=== PATIENT | female | born 1955 | race Caucasian/White ===

== ENCOUNTER 2019-01-11 00:16 | Emergency (ER) | payer OTHER ==
[~2019-01-11] VITALS: Ht 170.2 cm; Wt 74.0 kg
--- NOTE | 2019-01-11 00:22 | NUR ---
PT [facility]. WITNESSED SYNCOPAL EPISODE, HIT HEAD, + NAUSEA. EKG DONE ON ARRIVAL. PT DENIES DIZZINESS, HAS SOME DIFFICULTY ANSWERING QUESTIONS, STATES "I JUST DON'T FEEL WELL." PROVIDER AT BEDSIDE.
[2019-01-11] MEDS ORDERED: ONDANSETRON 2MG/ML, 2ML IVPush ONE (00:30)
[2019-01-11] MEDS ORDERED: FLUO10CA13 PO (00:31)
[2019-01-11] MEDS ORDERED: ATEN25TA PO (00:32)
[2019-01-11] MEDS ORDERED: LEVO25TA4 PO (00:32)
[2019-01-11] MEDS ORDERED: ONDANSETRON 2MG/ML, 2ML ONE (00:36)
--- NOTE | 2019-01-11 00:43 | NUR ---
PT MEDICATED PER MAR
[2019-01-11 00:57] LABS: MEAN CORPUSCULAR HEMOGLOBIN 32.9 pg (27.0-34.8); MEAN CORPUSCULAR HGB CONC 33.8 g/dL (32.4-35.8); MEAN CORPUSCULAR VOLUME 97.3 fL (80-100); PLATELET COUNT 274 x10^3/uL (130-400); RED BLOOD COUNT 4.19 x10^6/uL (3.82-5.3); RED CELL DISTRIBUTION WIDTH 12.7 % (9.6-15.2)
[2019-01-11 00:58] LABS: ANION GAP 7 mmol/L (5-15); CALCIUM 9.2 mg/dL (8.5-10.1); CHLORIDE 106 mmol/L (98-107); CREATININE 0.68 mg/dL (0.55-1.02)
--- NOTE | 2019-01-11 01:00 | NUR ---
PT TO CT
[2019-01-11 01:02] LABS: TROPONIN I < 0.015 ng/mL (0.000-0.045)
[2019-01-11 01:09] LABS: BASOPHILS # (AUTO) 0.04 x10^3/uL (0-0.1); BASOPHILS % (AUTO) 1 % (0-1); EOSINOPHILS # (AUTO) 0.25 x10^3/uL (0-0.4); EOSINOPHILS % (AUTO) 3 % (1-7); LYMPHOCYTES # (AUTO) 3.13 x10^3/uL (1-3.4); LYMPHOCYTES % (AUTO) 42 % (22-44); MD SCAN; MONOCYTES # (AUTO) 0.64 x10^3/uL (0.2-0.8); MONOCYTES % (AUTO) 9 % (2-9); NEUTROPHILS # (AUTO) 3.43 x10^3/uL (1.8-6.8); NEUTROPHILS % (AUTO) 46 % (42-75)
--- NOTE | 2019-01-11 01:32 | NUR ---
PT RESTING CALMLY, DENIES NEEDS, MONITORS IN PLACE, CALL LIGHT WITHIN REACH. AWAITING CT RESULT
[2019-01-11] MEDS ORDERED: PROMETHAZINE 25 MG/ML, 1ML IM ONE (02:00)
[2019-01-11] MEDS ORDERED: PROMETHAZINE 25 MG/ML, 1ML ONE (02:11)
[2019-01-11] MEDS ORDERED: IBUPROFEN 800 MG TABLET PO ONE (02:30)
[2019-01-11] MEDS ORDERED: IBUPROFEN 800 MG TABLET ONE (02:33)
[2019-01-11 02:34] VITALS: BP 152/88
--- NOTE | 2019-01-11 02:37 | NUR ---
PT MEDICATE DPER MAR. MONITORS IN PLACE, CALL LIGHT WITHIN REACH, DENIES FURTHER NEEDS AT THSI TIME
[2019-01-11] MEDS ORDERED: [UNRECOGNIZED DRUG - OTHER] PO (13:52)
[2019-01-11] MEDS ORDERED: BENA20TA5 PO (21:17)
[2019-01-11] MEDS ORDERED: ACEB400C PO (21:57)
[2019-01-11] MEDS ORDERED: FLUO20CA8 PO (22:36)
[2019-01-12] MEDS ORDERED: LEVO125T5 PO (09:30)
== END 2019-01-11 03:08 | disposition home or self-care (01) ==
LOC: ED 03:00
DX: S00.03XA Contusion of scalp, initial encounter (principal); R11.0 Nausea; R55 Syncope and collapse; I10 Essential (primary) hypertension; E03.9 Hypothyroidism, unspecified; R51 Headache; X58.XXXA Exposure to other specified factors, initial encounter; Y93.89 Activity, other specified; Y92.89 Other specified places as the place of occurrence of the external cause; Y99.8 Other external cause status
CPT/HCPCS: 36415; 70450; 80048; 84484; 85025; 93005; 96372; 96374; 99284; J2405; J2550

== ENCOUNTER 2019-01-11 13:45 | Inpatient (IN) | payer OTHER ==
[~2019-01-11] VITALS: Ht 175.3 cm; Wt 68.9 kg
[~2019-01-11 13:45] MED LIST: ATEN25TA PO; FLUO10CA13 PO; LEVO25TA4 PO
[2019-01-11] MEDS ORDERED: [UNRECOGNIZED DRUG - OTHER] PO (13:52)
--- NOTE | 2019-01-11 13:54 | NUR ---
PT ARRIVED [facility] FOR DIZZINESS. PT STATES SHE FELL YESTERDAY AFTER A SYNCOPAL EPISODE AND CAME TO THE ER, HEAD CT WAS NEGATIVE. PT WAS DISCHARGED HOME YESTERDAY EVENING BUT STATES HER COMPANY WANTS HER TO BE OBSERVED FOR 24 HOURS. PT STATES SHE HAS NO ONE TO WATCH HER AND IS STILL DIZZY AND NAUSEOUS. PT AAO X 4, DRESSED IN GOWN AND RESTING COMFORTABLY ON GURNEY. CALL LIGHT WITHIN REACH, NAD, VSS.
[2019-01-11] MEDS ORDERED: MECLIZINE CHEWABLE 25 MG TAB PO ONE (14:00)
[2019-01-11] MEDS ORDERED: MECLIZINE CHEWABLE 25 MG TAB ONE (14:16)
--- NOTE | 2019-01-11 14:18 | NUR ---
PT MEDICATED PER MD ORDER.
--- NOTE | 2019-01-11 15:01 | NUR ---
this rn spoke with pt's family via phone, updates provided.
--- NOTE | 2019-01-11 15:18 | NUR ---
md at bedside, plan to admit, friend at bedside.
--- NOTE | 2019-01-11 15:31 | NUR ---
report given to card/telephone lineworker.
--- NOTE | 2019-01-11 15:40 | NUR ---
pt became hypoxic when standing. pt placed on spo2.
[2019-01-11] MEDS ORDERED: BUTALB/APAP/CAFFEINE 50MG/325MG/40MG PO PRN (16:00)
[2019-01-11] MEDS ORDERED: ONDANSETRON 2MG/ML, 2ML IVPush PRN (16:00)
[2019-01-11] MEDS ORDERED: LABETALOL 5MG/ML, 20ML IVPush PRN (16:00)
[2019-01-11] MEDS: SODIUM CHLORIDE 0.9% 1,000 ML IV SCH (16:29)
[2019-01-11 16:44] LABS: TROPONIN I < 0.015 ng/mL (0.000-0.045)
[2019-01-11 16:50] LABS: THYROID STIMULATING HORMONE 0.929 mIU/L (0.358-3.740)
[2019-01-11 17:09] VITALS: BP 152/82
[2019-01-11 19:22] VITALS: BP 155/62
[2019-01-11] MEDS: MECLIZINE CHEWABLE 25 MG TAB PO SCH (20:04)
[2019-01-11] MEDS: ACETAMINOPHEN 325 MG TABLET PO PRN (20:04)
[2019-01-11] MEDS ORDERED: FLUOXETINE 10 MG CAP HOMEMEDPO SCH (21:00)
[2019-01-11] MEDS ORDERED: BENA20TA5 PO (21:17)
[2019-01-11] MEDS ORDERED: ACEB400C PO (21:57)
[2019-01-11] MEDS ORDERED: FLUOXETINE 10 MG CAP PO SCH ×2 (22:00→22:18)
[2019-01-11 22:15] LABS: TROPONIN I < 0.015 ng/mL (0.000-0.045)
[2019-01-11 22:19] LABS: ANION GAP 8 mmol/L (5-15); CALCIUM 8.5 mg/dL (8.5-10.1); CHLORIDE 110 mmol/L (98-107); CREATININE 0.77 mg/dL (0.55-1.02)
[2019-01-11] MEDS ORDERED: ACEBUTOLOL HOMEMEDPO SCH (22:30)
[2019-01-11] MEDS ORDERED: FLUO20CA8 PO (22:36)
[2019-01-12] VITALS (9 sets, daily range): BP systolic 106–158; BP diastolic 61–96
[2019-01-12 04:15] LABS: ALANINE AMINOTRANSFERASE 22 U/L (12-78); ALBUMIN 3.1 g/dL (3.4-5.0); ANION GAP 4 mmol/L (5-15); CALCIUM 8.7 mg/dL (8.5-10.1); CHLORIDE 111 mmol/L (98-107)
[2019-01-12 04:23] LABS: ALKALINE PHOSPHATASE 65 U/L (45-117); BILIRUBIN,TOTAL 0.8 mg/dL (0.2-1.0); CREATININE 0.58 mg/dL (0.55-1.02); TOTAL PROTEIN 6.6 g/dL (6.4-8.2); TROPONIN I < 0.015 ng/mL (0.000-0.045)
[2019-01-12] MEDS ORDERED: POTASSIUM CHLORIDE 20 MEQ TAB.ER.PRT PO ONE (04:30)
[2019-01-12 04:38] LABS: BASOPHILS # (AUTO) 0.03 x10^3/uL (0-0.1); BASOPHILS % (AUTO) 0 % (0-1); EOSINOPHILS # (AUTO) 0.33 x10^3/uL (0-0.4); EOSINOPHILS % (AUTO) 4 % (1-7); LYMPHOCYTES # (AUTO) 2.76 x10^3/uL (1-3.4); LYMPHOCYTES % (AUTO) 36 % (22-44); MD NO; MEAN CORPUSCULAR HGB CONC 33.6 g/dL (32.4-35.8); MEAN CORPUSCULAR VOLUME 98.2 fL (80-100); MEAN PLATELET VOLUME 7.2 fL (7.4-10.4); MONOCYTES # (AUTO) 0.69 x10^3/uL (0.2-0.8); MONOCYTES % (AUTO) 9 % (2-9); NEUTROPHILS # (AUTO) 3.91 x10^3/uL (1.8-6.8); NEUTROPHILS % (AUTO) 51 % (42-75); PLATELET COUNT 245 x10^3/uL (130-400); RED BLOOD COUNT 4.15 x10^6/uL (3.82-5.3)
[2019-01-12] MEDS: MECLIZINE CHEWABLE 25 MG TAB PO SCH ×2 (08:07→21:19)
[2019-01-12] MEDS ORDERED: LEVO125T5 PO (09:30)
[2019-01-12] MEDS ORDERED: BENAZEPRIL 10 MG TABLET PO SCH (10:00)
[2019-01-12] MEDS ORDERED: BENAZEPRIL 20 MG TABLET ONE (10:04)
[2019-01-12] MEDS: LEVOTHYROXINE 125 MCG TABLET PO SCH (10:06)
[2019-01-12] MEDS: ATENOLOL 50 MG TABLET PO SCH (10:07)
[2019-01-12] MEDS: ACETAMINOPHEN 325 MG TABLET PO PRN ×2 (10:25→21:24)
[2019-01-12] MEDS: SODIUM CHLORIDE 0.9% 1,000 ML IV SCH (13:00)
[2019-01-12] MEDS ORDERED: FLUOXETINE HCL 20 MG CAPSULE PO SCH (21:00)
[2019-01-13 02:44] VITALS: BP 158/90
[2019-01-13 05:41] LABS: CHLORIDE 110 mmol/L (98-107)
[2019-01-13 05:45] LABS: ANION GAP 8 mmol/L (5-15); CALCIUM 8.8 mg/dL (8.5-10.1); CREATININE 0.53 mg/dL (0.55-1.02)
[2019-01-13 06:05] VITALS: BP 165/70
[2019-01-13] MEDS: ATENOLOL 50 MG TABLET PO SCH (06:09)
[2019-01-13] MEDS: LEVOTHYROXINE 125 MCG TABLET PO SCH (06:09)
[2019-01-13 07:09] VITALS: BP 169/78
[2019-01-13 07:10] VITALS: BP 169/99
[2019-01-13 07:11] VITALS: BP 178/106
[2019-01-13] MEDS ORDERED: ATENOLOL 25 MG TABLET PO SCH (07:30)
[2019-01-13] MEDS ORDERED: BENAZEPRIL 20 MG TABLET PO SCH (09:00)
[2019-01-13] MEDS ORDERED: MECLIZINE CHEWABLE 25 MG TAB PO SCH (09:00)
[2019-01-13] MEDS: ACETAMINOPHEN 325 MG TABLET PO PRN (10:39)
[2019-01-13] MEDS ORDERED: BENA20TA54 PO (11:44)
[2019-01-13] MEDS ORDERED: MECL-85 PO (11:44)
[2019-01-13] MEDS ORDERED: ACET325T26 PO (11:44)
[2019-01-13 12:10] VITALS: BP 169/91
== END 2019-01-13 12:50 | disposition home or self-care (01) | DRG 604 ==
LOC: ED 14:12 → 4EST 15:26
PROVIDERS: ADMIT Internal Medicine; ATTEND Internal Medicine
DX: S00.03XA Contusion of scalp, initial encounter (principal); J96.01 Acute respiratory failure with hypoxia; E44.1 Mild protein-calorie malnutrition; E03.9 Hypothyroidism, unspecified; E87.6 Hypokalemia; I10 Essential (primary) hypertension; W18.39XA Other fall on same level, initial encounter; Y93.89 Activity, other specified; Y92.89 Other specified places as the place of occurrence of the external cause; Y99.8 Other external cause status; I49.3 Ventricular premature depolarization; Z68.22 Body mass index [BMI] 22.0-22.9, adult; R73.9 Hyperglycemia, unspecified; Z82.49 Family history of ischemic heart disease and other diseases of the circulatory system
CPT/HCPCS: 36415; 71275; 80048; 80053; 83880; 84443; 84484; 85025; 85379; 93005; 93306; 93880; 99285; G0378; J7030